=== PATIENT | female | born 1985 | race Caucasian/White ===

== ENCOUNTER 2017-11-23 16:39 | Emergency (ER) | payer OTHER ==
[2017-11-23] MEDS ORDERED: Mag-Al Plus 1200 MG/1200 MG/120 MG/30 ML UDCUP ONE (16:58)
[2017-11-23] MEDS ORDERED: Lidocaine Viscous Sol 2% 15 ml UD Cup ONE (16:58)
[2017-11-23 17:11] LABS: #Basophils 0.1 thou/uL (0.0-0.2); #Eosinphils 0.2 thou/uL (0.0-0.7); #Lymphocytes 2.3 thou/uL (1.20-3.40); #Monocytes 0.7 thou/uL (0.11-0.59); #Neutrophils 7.8 thou/uL (1.40-6.50); %Basophils 0.9 % (0.0-1.0); %Eosinophils 2.1 % (0.0-10.0); %Lymphocytes 20.6 % (21.0-51.0); %Monocytes 6.5 % (0.0-10.0); Hemoglobin 14.8 g/dL (12.0-16.0); Mean Corpuscular HGB CONC 35.4 g/dL (32.0-36.0); Mean Corpuscular Hemoglobin 29.9 pg (27.0-31.0); Mean Corpuscular Volume 84.6 fl (81.0-99.0); Mean Platelet Volume 8.4 fL (7.4-10.4); Platelet Count 230 thou/uL (130-400); RBC Distribution Width 11.1 % (11.5-14.5); Red Blood Cell (RBC) Count 4.94 mill/uL (4.20-5.40); White Blood Cell (WBC) Count 11.1 thou/uL (4.8-10.8)
[2017-11-23 17:16] LABS: Bilirubin Negative (Negative); Blood, Urine Negative (Negative); Clarity Clear (Clear); Glucose, Urine (Dipstick) Negative (Negative); Leukocyte Negative (Negative); Nitrite Negative (Negative); Protein, Urine (Dipstick) Negative (Neg-Trace); Specific Gravity, Urine 1.025 (1.005-1.030); Urobilinogen 0.2 mg/dL (0.2-1.0); pH, Urine 5.5 (5.0-9.0)
[2017-11-23 17:18] LABS: Pregnancy Test - Urine (BHCG) Negative (Negative); Pregu Control Background? CLEAR/WHITE (CLR/WHITE); Pregu Control Bar Appear? YES (CONTROL BAR); Specific Gravity 1.025 (1.002-1.036)
[2017-11-23 17:26] LABS: ALT (SGPT) 14 U/L (8-55); AST (SGOT) 16 U/L (5-34); Albumin 4.2 g/dL (3.5-5.0); Alkaline Phosphatase 56 U/L (40-150); Anion Gap 15 mmol/L (10-20); BUN (Urea Nitrogen) 19 mg/dL (7.0-18.7); Bilirubin, Total 0.3 mg/dL (0.2-1.2); Calc. Creatinine Clearance 0 mL/min (70-130); Calcium 9.7 mg/dL (7.8-10.44); Carbon Dioxide 21 mmol/L (22-29); Chloride 108 mmol/L (98-107); Estimated GFR-MDRD 65; Globulin 3.7 g/dL (2.4-3.5); Glucose 109 mg/dL (70-105); Lipase 37 U/L (8-78); Protein, Total 7.9 g/dL (6.0-8.3); Sodium 140 mmol/L (136-145)
--- NOTE | 2017-11-23 18:54 | ULT ---
RIGHT UPPER QUADRANT PAIN 11/23/17 HISTORY: Right upper pain. Multiple longitudinal and transverse images of the right upper quadrant of the abdomen is obtained us ing a multihertz curvilinear transducer. Real time, color flow and spectral waveform doppler analysis is used to evaluate the right upper quadrant of the abdomen. Images demonstrate the liver to be unremarkable with no evidence of hepatic parenchymal masses or les ions seen. Normal hepatopedal flow is seen in the portal system. The gallbladder is contracted. If the patient has had a recent meal, repeat exam with appropriate n.p .o. preultrasound preparation is recommended. The common bile duct is of normal size measuring 2.6 mm. The pancreas is suboptimally visualized due to overlying bowel gas. The right kidney is unremarkable without evidence of hydronephrosis or masses. Pole to pole measureme nt measures 10.8 cm. IMPRESSION: Gallbladder contraction, otherwise unremarkable right upper quadrant ultrasound. POS: [facility]
[2017-11-23] MEDS ORDERED: traMADol HCl 50 MG TAB ONE (20:27)
== END 2017-11-23 20:36 | disposition home or self-care (01) ==
LOC: SCSER 16:39
DX: R10.13 Epigastric pain (principal); R10.11 Right upper quadrant pain; F31.9 Bipolar disorder, unspecified; F43.10 Post-traumatic stress disorder, unspecified; Z79.899 Other long term (current) drug therapy
CPT/HCPCS: 76705; 80053; 81003; 81025; 83690; 85025